=== PATIENT | female | born 1980 | race African-American/Black ===

== ENCOUNTER 2016-02-24 23:48 | Emergency (ER) ==
[2016-02-24 23:57] VITALS: BP 92/54
--- NOTE | 2016-02-25 00:16 | PROVIDER DOCUMENTATION ---
HPI-General Adult - General Chief Complaint: Extremity Injury Stated Complaint: @2300 FALL RT WRIST INJURY Time Seen by Provider: 02/24/16 23:59 Source: patient Allergies/Adverse Reactions: Patient Allergies Allergy/AdvReac Type Severity Reaction Status Date / Time No Known Allergies Allergy Verified 01/31/16 07:45 Home Medications: No Home Medications 02/25/16 - History of Present Illness -Gen Adult Nature of Presenting Problems: Pt. is 35 yof that presents with c/o right wrist pain and right shoulder pain after she tripped and fell backwards catching herself with her right arm. Pt. denies any LOC or other injury. Location of Pain/Injury: reports: upper extremity (right arm and wrist). denies : head, face, mouth, neck, chest, hand(s), abdomen, back, pelvis, genitalia, lower extremity, feet, upper body, lower body, generalized Pain Radiation: reports: no radiation Quality of Pain: reports: aching. denies: burning, cramping, dull, fullness, indigestion, pressure, sharp, stabbing, tearing, throbbing, tightness Severity: reports: mild. denies: moderate, severe Onset/Duration: reports: abrupt, just prior to arrival Timing: reports: still present. denies: improving, gone now, resolved prior to arrival, intermittent, constant, changing over time, getting worse Context/Activities at Onset: reports: light activity. denies: recent emotional stress, recent physical stress, recent trauma history, possible bad food, cold exposure, out of country travel Modifying Factors: improves with: immobilization. worse with: movement Associated Symptoms: reports: joint pain (right shoulder and wrist). denies: denies symptoms, anxiety, arm pain, back/neck pain, chest pain, constipation, cough, diaphoresis, diarrhea, dizziness, EENT symptoms, fatigue, fever/chills, genitourinary problems, headaches, heartburn, loss of appetite, malaise, muscle aches, sinus congestion/drainage, nausea, rash, seizure, shortness of breath, sensory/motor loss, pain with inspiration, swelling/mass in abdomen, syncope, vomiting, weakness, trouble walking Similar Symptoms Previously?: Yes Recently seen or treated by another doctor?: No Review of Systems - Adult - REVIEW OF SYSTEMS - ADULT Constitutional: reports: see HPI. denies: chills, fever, fatique Eyes: reports: see HPI. denies: discharge, blurred vision, double vision, eye pain Ears, Nose, Mouth & Throat: reports: see HPI. denies: ear discharge, ear pain, hearing loss, nose pain, loose teeth, mouth/dental pain, throat pain, throat swelling Cardiovascular: reports: see HPI. denies: chest pain, irregular heart rate, palpitations, syncope Respiratory: reports: see HPI. denies: chronic cough, cough, dyspnea on exertion, hemoptysis, pleurisy, shortness of breath, wheezing Gastrointestinal: reports: see HPI. denies: abdominal pain, hematemesis, frequent heartburn, nausea, vomiting Genitourinary: reports: see HPI. denies: dysuria, hematuria, hesitency, urgency Musculoskeletal: reports: see HPI, joint pain (Right shoulder and right wrist). denies: joint swelling, muscle aches, neck pain Integumentary: reports: see HPI. denies: hives, hair loss, itching, rash, skin thickening Neurological: reports: see HPI. denies: ataxia, headache/migraines, numbness, seizure, tremors Psychiatric: reports: see HPI. denies: anxiety, depression, emotional problems , insomnia, panic attacks, suicidal thoughts Endocrine: reports: see HPI. denies: change in skin pigment, increased hunger, polyuria Past History - Adult - PAST MEDICAL HISTORY-ADULT Review of Records: reports: Old Records Reviewed, Nursing Assessment Review, Medications Reviewed, Social history reviewed & non-contributory. Respiratory: reports: other (seasonal allergies) - PRIOR SURGERIES/PROCEDURES Surgical/Procedure History: reports: none - IMMUNIZATION STATUS Childhood Immunizations: UTD, See Nurse Assessment Flu Vaccine: See Nurse Assessment Physical Exam-General - PHYSICAL EXAM-ADULT Initial Vital Signs Reviewed: Yes - CONSTITUTIONAL General Appearance: alert, mild distress, thin. negative: obese, anxious, lethargic, slow to respond, obtunded, combative - EYES Eyes: PERRL/EOMI, pink conjunctivae. negative: conjuctival exudate, photophobia , subconjunctival hemorrhage - HEAD, EARS, NOSE, MOUTH & THROAT HENMT: normocephalic/atraumatic, moist mucous membranes. negative: angioedema, frontal tenderness, maxillary tenderness - NECK Neck: non-tender, full range of motion, supple, normal inspection. negative: lymphadenopathy, trachial deviation, thyromegaly - RESPIRATORY Respiratory: lungs clear, normal breath sounds. negative: crackles, rales, rhonchi, stridor, wheezing - CARDIOVASCULAR Cardiovascular: normal peripheral pulses, regular rate, rhythm, no edema, no JVD , no murmur. negative: extra beats, friction rub, irregularly irregular - CHEST (BREASTS) Chest/Breast: deferred - GASTROINTESTINAL (ABDOMEN) Abdominal Exam: normal bowel sounds, non tender, soft. negative: distended, guarding, rigid, rebound, tenderness, hernia, mass - GENITOURINARY Female Genitalia/Pelvic Exam: deferred Rectal Exam: deferred Hemoccult Exam: deferred - LYMPHATIC Lymphatic: no adenopathy. negative: axilla node tender, cervical node tenderness - MUSCULOSKELETAL Back Exam: normal inspection, no CVA tenderness, no vertebral tenderness. negative: ecchymosis, muscle spasm, vertebral tenderness Extremity: normal range of motion, normal gait, normal inspection, tenderness ( Right shoulder and right wrist). negative: deformity, erythema, inflammation, swelling Peripheral Pulses: radial (R): 2+, radial (L): 2+ - SKIN Integumentary: normal color, normal turgor, warm/dry. negative: cyanosis, diaphoresis, ecchymosis, erythema, jaundice, mottled, pallor, petechiae, purpura , rash, swelling, tenderness - NEUROLOGIC Neurologic: grossly normal, no motor/sensory deficits. negative: abnormal gait , aphasia, facial droop, focal weakness, motor weakness, sensory deficit - PSYCHIATRIC Psych/Mental Status: normal mood/affect, normal thought content, normal thought process, oriented x 3. negative: anxious, paranoid, tearful Progress - PLAN OF CARE/RESULTS Progress/Plan/Lab Results: Pt. was in the waiting room stating she was unable to urinate for a test prior to having x-rays. The patient eloped without giving the urine and no diagnostics were completed. Vital Signs Temp Pulse Resp BP Pulse Ox 02/24/16 23:55 97.7 F 97 H 20 92/54 99 No Known Allergies Allergy (Verified 01/31/16 07:45) No Home Medications 02/25/16 Orders Category Date Time Status ED: Urine Bedside ORDERED Care 02/25/16 00:16 Inactive Departure - Departure Time of Disposition Order: 01:41 DIAGNOSIS: Wrist pain Qualifiers: Laterality: right Qualified Code(s): M25.531 - Pain in right wrist Shoulder pain Qualifiers: Laterality: right Chronicity: acute Qualified Code(s): M25.511 - Pain in right shoulder Disposition: [place] [id number] Certified Medical Emergency: Emergent Condition: Good Attestation - Physician/ Mid-level Attestation Patient care was provided by Mid-level provider (JIG HAND/PA):: Yes Mid-level provider:: Baldev Guillen Mid-level documentation review:: The Mid-level provider documentation, treatment plan and medical decision making was reviewed by the physician who agrees with all treatment and medical decision making by the MLP.
== END 2016-02-25 01:01 | disposition left against medical advice (07) ==
LOC: ED 23:48
DX: M25.531 Pain in right wrist (principal); M25.511 Pain in right shoulder; W01.0XXA Fall on same level from slipping, tripping and stumbling without subsequent striking against object, initial encounter

== ENCOUNTER 2016-02-25 06:32 | Emergency (ER) ==
--- NOTE | 2016-02-25 08:05 | PROVIDER DOCUMENTATION ---
HPI-Musculoskeletal Pain/Inj - GENERAL Chief Complaint: Extremity Injury Stated Complaint: WRIST PAIN Time Seen by Provider: 02/25/16 06:37 Source: patient - HX OF PRESENT ILLNESS-MUSKULOSKELTAL Nature of Presenting Problem: Patient fell early this am. Now with wrist pain Quality of Pain: reports: throbbing, tightness Severity in ED: mild Onset/Duration: 4-6 hours ago Timing: still present Modifying Factors: improves with: nothing Any recent injury?: Yes (see HPI) Similar Symptoms Previously?: No Recently seen or treated by another doctor?: Yes (eloped earlier today) - FALL INJURY Location of Pain/Injury: reports: upper extremity Pain Radiation: reports: no radiation Reason for Fall: reports: tripped Symptoms prior to fall:: reports: none Loss of Consciousness: no loss of consciousness Injury Associated Symptoms: reports: denies symptoms Review of Systems - Adult - REVIEW OF SYSTEMS - ADULT Constitutional: reports: no symptoms reported Eyes: reports: no symptoms reported Ears, Nose, Mouth & Throat: reports: no symptoms reported Cardiovascular: reports: no symptoms reported Respiratory: reports: no symptoms reported Gastrointestinal: reports: no symptoms reported Genitourinary: reports: no symptoms reported Musculoskeletal: reports: no symptoms reported Integumentary: reports: no symptoms reported Neurological: reports: no symptoms reported Psychiatric: reports: no symptoms reported Endocrine: reports: no symptoms reported Hematologic/Lymphatic: reports: no symptoms reported Allergic/Immunologic: reports: no symptoms reported All Other Systems: Reviewed and Negative Past History - Adult - PAST MEDICAL HISTORY-ADULT Review of Records: reports: Old Records Reviewed, Nursing Assessment Review, Social history reviewed & non-contributory. Respiratory: reports: other (seasonal allergies) - PRIOR SURGERIES/PROCEDURES Surgical/Procedure History: reports: none - IMMUNIZATION STATUS Childhood Immunizations: UTD, See Nurse Assessment Flu Vaccine: See Nurse Assessment Physical Exam-Injury Related - Physical Exam-Injury Related Initial Vital Signs Reviewed: Yes General Appearance: appears well, alert, no apparent distress Eyes: PERRL/EOMI Head, Ears, Nose, Mouth & Throat: normocephalic/atraumatic Neck: non-tender, full range of motion Respiratory: lungs clear Cardiovascular: normal peripheral pulses Abdominal Exam: normal bowel sounds Female Genitalia/Pelvic Exam: deferred Extremity: tenderness (rt wrist minimally tender) Progress - XRAY 1 XRAY Study: Wrist (nad) Departure - Departure Time of Disposition Order: 08:06 DIAGNOSIS: Contusion of right wrist, initial encounter Qualifiers: Encounter type: initial encounter Qualified Code(s): S60.211A - Contusion of right wrist, initial encounter Disposition: HOME 01 Certified Medical Emergency: Emergent Condition: Good
[2016-02-25 08:14] VITALS: BP 120/63
--- NOTE | 2016-02-25 08:21 | Diag Imaging Result Document ---
PROCEDURE NAME: WRIST COMPLETE RIGHT - 02/25/2016 RIGHT WRIST, THREE VIEWS: FINDINGS: There is no evidence of acute fracture or dislocation. No other definite bony abnormalities are present. IMPRESSION: No acute disease.
== END 2016-02-25 08:14 | disposition home or self-care (01) ==
LOC: ED 06:32
DX: S60.211A Contusion of right wrist, initial encounter (principal); M25.531 Pain in right wrist; W01.0XXA Fall on same level from slipping, tripping and stumbling without subsequent striking against object, initial encounter
CPT/HCPCS: 81025; 99284

== ENCOUNTER 2016-04-10 05:51 | Emergency (ER) ==
[2016-04-10 06:36] LABS: URINE SOURCE CLEAN CATCH
[2016-04-10 06:52] LABS: BILIRUBIN URINE NEGATIVE (NEGATIVE); BLOOD URINE LARGE (NEGATIVE); COLOR ORANGE; GLUCOSE URINE NEGATIVE (NEGATIVE); LEUKOCYTES URINE LARGE (NEGATIVE); NITRITE URINE NEGATIVE (NEGATIVE); PROTEIN URINE 100 mg/dL (NEGATIVE); SP GRAVITY URINE 1.025; TURBIDITY URINE TURBID (CLEAR); UROBILINOGEN URINE NORMAL (NORMAL)
[2016-04-10 06:54] LABS: URINE MICRO REVIEW NEEDED? YES
[2016-04-10 07:07] LABS: UR EPITHELIAL CELLS <10 /HPF (<10); URINE BACTERIA 1+ /HPF; URINE CULTURE NEEDED? YES; URINE RBC TNTC /HPF (<10); URINE WBC TNTC /HPF (<10)
--- NOTE | 2016-04-10 07:16 | PROVIDER DOCUMENTATION ---
HPI-Female /OB/Breast - General Chief Complaint: UTI Symptoms Stated Complaint: UTI Time Seen by Provider: 04/10/16 06:30 Source: reports: patient Unable to obtain history due to:: urgency Allergies/Adverse Reactions: Patient Allergies Allergy/AdvReac Type Severity Reaction Status Date / Time No Known Allergies Allergy Verified 04/10/16 06:01 Home Medications: Home Medication List Medication Instructions Recorded Confirmed Last Taken Type Amitriptyline [Elavil] 10 mg PO QHS 04/10/16 04/10/16 04/09/16 History Sulfamethoxazole/Trimethoprim 1 each PO BID #10 tablet 04/10/16 Unknown Rx [Bactrim Ds Tablet] - History of Present Illness-Female /OB Does patient report she is ?: No Location of complaint: reports: suprapubic Radiation: reports: none (35 year old AAF complains of dysuria over the last days), back, suprapubic Quality of Pain: reports: aching, burning, fullness, pressure Onset/Duration: reports: 3 days ago Context/Activities at Onset: reports: none Vaginal Symptoms: reports: no symptoms Vaginal Bleeding Amount: None Urinary Symptoms: reports: dysuria, frequency, urgency, low back pain Related Symptoms: reports: no symptoms Leakage of Fluid: none Sexual intercourse history: reports: Other Contraception: reports: none Modifying Factors: improves with: nothing Associated Symptoms: reports: back/neck pain Similar Symptoms Previously?: No Recently seen or treated by another doctor?: No - LMP/ History Menstrual Status: abnormal period(s) PREVIOUS Problems: reports: none Review of Systems - Adult - REVIEW OF SYSTEMS - ADULT Constitutional: reports: no symptoms reported Eyes: reports: no symptoms reported Ears, Nose, Mouth & Throat: reports: no symptoms reported Cardiovascular: reports: no symptoms reported Respiratory: reports: no symptoms reported Gastrointestinal: reports: no symptoms reported Genitourinary: reports: see HPI, dysuria, frequency, frequent UTI's, urgency Musculoskeletal: reports: no symptoms reported Integumentary: reports: no symptoms reported Neurological: reports: no symptoms reported Psychiatric: reports: no symptoms reported Endocrine: reports: no symptoms reported Hematologic/Lymphatic: reports: no symptoms reported Allergic/Immunologic: reports: no symptoms reported All Other Systems: Reviewed and Negative Past History - Adult - PAST MEDICAL HISTORY-ADULT Review of Records: reports: Old Records Reviewed, Nursing Assessment Review, Medications Reviewed, Social history reviewed & non-contributory. Major Childhood Illnesses: reports: denies history Cardiovascular: reports: denies history Respiratory: reports: denies history, other (seasonal allergies) Gastrointestinal: reports: denies history Obstetrical/Gynecological: reports: denies history Genitourinary: reports: chronic UTI's Musculoskeletal: reports: denies history Neurological: reports: denies history Psychiatric: reports: denies history - PRIOR SURGERIES/PROCEDURES Surgical/Procedure History: reports: none - IMMUNIZATION STATUS Childhood Immunizations: UTD, See Nurse Assessment Flu Vaccine: See Nurse Assessment Physical Exam-General - PHYSICAL EXAM-ADULT Initial Vital Signs Reviewed: Yes - CONSTITUTIONAL General Appearance: appears well, alert, no apparent distress - EYES Eyes: PERRL/EOMI, pink conjunctivae, fundi clear, no AV nicking - HEAD, EARS, NOSE, MOUTH & THROAT HENMT: normocephalic/atraumatic, moist mucous membranes, normal ENT inspection - NECK Neck: full range of motion, supple - RESPIRATORY Respiratory: chest non-tender, lungs clear, normal breath sounds - CARDIOVASCULAR Cardiovascular: normal peripheral pulses, regular rate, rhythm, no edema - CHEST (BREASTS) Chest/Breast: deferred - GASTROINTESTINAL (ABDOMEN) Abdominal Exam: normal bowel sounds - GENITOURINARY Female Genitalia/Pelvic Exam: deferred Rectal Exam: deferred - LYMPHATIC Lymphatic: no adenopathy - MUSCULOSKELETAL Back Exam: normal inspection, no CVA tenderness, no vertebral tenderness Extremity: normal range of motion, non-tender, normal gait - SKIN Integumentary: normal color, normal turgor, warm/dry - NEUROLOGIC Neurologic: 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
[2016-04-10 08:04] VITALS: BP 109/63
== END 2016-04-10 08:03 | disposition home or self-care (01) ==
LOC: ED 05:51
DX: N39.0 Urinary tract infection, site not specified (principal); R30.0 Dysuria; R10.9 Unspecified abdominal pain; R35.0 Frequency of micturition; R39.15 Urgency of urination; M54.5 Low back pain; Z79.899 Other long term (current) drug therapy; Z87.440 Personal history of urinary (tract) infections
CPT/HCPCS: 81001; 87088